=== PATIENT | male | born 1970 | race Caucasian/White ===

== ENCOUNTER 2018-07-09 08:03 | Outpatient (RCR) | payer BC ==
[~2018-07-09 08:03] MED LIST: LACT10SO33 PO; POLY17PO23 PO; SENN1TAB76 PO; [UNRECOGNIZED DRUG - OTHER] PO
== END 2018-07-09 09:29 | disposition home or self-care (01) ==
DX: M54.42 Lumbago with sciatica, left side (principal)

== ENCOUNTER 2020-10-22 17:11 | Emergency (ER) | payer BC ==
[~2020-10-22] VITALS: Ht 175 cm; Wt 95.0 kg
--- NOTE | 2020-10-22 17:56 | ED Cardiac General ---
History of Present Illness General Chief Complaint: Cardiac/General Problems Stated Complaint: HIGH BP 168/90 Source: patient Exam Limitations: no limitations History of Present Illness Date Seen by Provider: Oct 22, 2020 Time Seen by Provider: 17:38 Initial Comments This is a healthy-appearing 50-year-old male presents to the ER with complaints of high blood pressure and left arm numbness, more so in his hand. States he was recently placed on Losartan for his high BP, and noted throughout the day his BP stayed high, with the highest at 168/90. In ED he reports symptoms of numbness is gone. States his elevated BP causes him to be very anxious. He denies fever, vertigo, chills, vision changes, weakness, slurred speech, cough, shortness of breath, chest pain, nausea, vomiting, diarrhea, abdominal pain. Allergies and Home Medications Allergies Coded Allergies: No Known Drug Allergies (Unverified , 04/18/11) Home Medications Lactulose 10 G/15 Ml Btl, 30 ML PO BID, (Reported) Polyethylene Glycol 17 Gm Pack, 17 GM PO DAILY, (Reported) Senna 1 Tab Tablet, 1 TAB PO DAILY PRN, (Reported) USE ONE CAP FULL TO 8OZ. H20 [oxyelite pro i bid] , 1 TAB PO BID, (Reported) Patient Home Medication List Home Medication List Reviewed: Yes Review of Systems Review of Systems Constitutional: no symptoms reported EENTM: No Blurred Vision, No Double Vision; Nose Congestion Respiratory: No Symptoms Reported Cardiovascular: See HPI Gastrointestinal: No Symptoms Reported Genitourinary: No Symptoms Reported Musculoskeletal: no symptoms reported Skin: no symptoms reported Endocrine: No Symptoms Reported Hematologic/Lymphatic: No Symptoms Reported Physical Exam Vital Signs Vital Signs - First Documented 10/22/20 10/22/20 17:15 18:59 Temp 36.1 Pulse 98 Resp 18 B/P (MAP) 154/89 (110) Pulse Ox 99 O2 Delivery Room Air Capillary Refill : Height, Weight, BMI Height: '" Weight: lbs. oz. kg; BMI Method: General Appearance: No Apparent Distress, WD/WN HEENT: PERRL/EOMI, Normal ENT Inspection, Pharynx Normal, Moist Mucous Membranes Neck: Full Range of Motion, Normal Inspection, Non Tender, Supple; No Carotid Bruit Respiratory: Lungs Clear, Normal Breath Sounds, No Accessory Muscle Use Cardiovascular: Regular Rate, Rhythm, No Edema, No Murmur, Normal Peripheral Pulses, Friction Rub Gastrointestinal: Normal Bowel Sounds, Non Tender, Soft Extremity: Normal Capillary Refill, Normal Inspection, No Pedal Edema Neurologic/Psychiatric: Alert, Oriented x3, No Motor/Sensory Deficits, Normal Mood/Affect, coffee shop aide II-XII Norm as Tested Skin: Normal Color, Warm/Dry Progress/Results/Core Measures Results/Orders Lab Results Laboratory Tests Test 10/22/20 17:54 Range/Units White Blood Count 6.1 4.3-11.0 10^3/uL Red Blood Count 5.21 4.30-5.52 10^6/uL Hemoglobin 16.3 13.3-17.7 g/dL Hematocrit 49 40-54 % Mean Corpuscular Volume 94 80-99 fL Mean Corpuscular Hemoglobin 31 25-34 pg Mean Corpuscular Hemoglobin Concent 33 32-36 g/dL Red Cell Distribution Width 14.0 10.0-14.5 % Platelet Count 210 130-400 10^3/uL Mean Platelet Volume 10.8 9.0-12.2 fL Immature Granulocyte % (Auto) 1 % Neutrophils (%) (Auto) 48 42-75 % Lymphocytes (%) (Auto) 37 12-44 % Monocytes (%) (Auto) 10 0-12 % Eosinophils (%) (Auto) 4 0-10 % Basophils (%) (Auto) 0 0-10 % Neutrophils # (Auto) 3.0 1.8-7.8 10^3/uL Lymphocytes # (Auto) 2.2 1.0-4.0 10^3/uL Monocytes # (Auto) 0.6 0.0-1.0 10^3/uL Eosinophils # (Auto) 0.3 0.0-0.3 10^3/uL Basophils # (Auto) 0.0 0.0-0.1 10^3/uL Immature Granulocyte # (Auto) 0.0 0.0-0.1 10^3/uL Prothrombin Time 13.6 12.2-14.7 SEC INR Comment 1.0 0.8-1.4 Activated Partial Thromboplast Time 32 24-35 SEC Sodium Level 137 135-145 MMOL/L Potassium Level 4.0 3.6-5.0 MMOL/L Chloride Level 104 98-107 MMOL/L Carbon Dioxide Level 19 L 21-32 MMOL/L Anion Gap 14 5-14 MMOL/L Blood Urea Nitrogen 21 H 7-18 MG/DL Creatinine 0.91 0.60-1.30 MG/DL Estimat Glomerular Filtration Rate > 60 BUN/Creatinine Ratio 23 Glucose Level 101 70-105 MG/DL Calcium Level 9.1 8.5-10.1 MG/DL Corrected Calcium 9.0 8.5-10.1 MG/DL Magnesium Level 1.9 1.6-2.4 MG/DL Total Bilirubin 0.4 0.1-1.0 MG/DL Aspartate Amino Transf (AST/SGOT) 24 5-34 U/L Alanine Aminotransferase (ALT/SGPT) 34 0-55 U/L Alkaline Phosphatase 56 40-136 U/L Myoglobin 37.6 10.0-92.0 NG/ML Troponin I < 0.028 <0.028 NG/ML Total Protein 7.5 6.4-8.2 GM/DL Albumin 4.1 3.2-4.5 GM/DL My Orders Orders - LIZZY MALHOTRA APRN Troponin I (10/22/20 17:32) Chest 1 View, Ap/Pa Only (10/22/20 17:32) Ekg Tracing (10/22/20 17:32) Ed Iv/Invasive Line Start (10/22/20 17:32) Monitor-Rhythm Ecg Trace Only (10/22/20 17:32) Cbc With Automated Diff (10/22/20 17:32) Magnesium (10/22/20 17:32) Comprehensive Metabolic Panel (10/22/20 17:32) Myoglobin Serum (10/22/20 17:32) Protime With Inr (10/22/20 17:32) Partial Thromboplastin Time (10/22/20 17:32) O2 (10/22/20 17:32) Vital Signs/I&O 10/22/20 10/22/20 17:15 18:59 Temp 36.1 Pulse 98 90 Resp 18 18 B/P (MAP) 154/89 (110) 146/86 Pulse Ox 99 96 O2 Delivery Room Air Progress Progress Note : Progress Note Pt. examined, no distress. Has no chest pain. CC is for high blood pressure. Notes that he does take OTC vitamins such as Prevagen. In ED SBP 150's. Notes that he was very anxious about his BP which could contribute to the numbness in his left hand. However, cardiac workup initiated. He has no focal or gross neurological deficits. Labs and CXR unremarkable. Reviewed findings and discussed stopping Prevagen as this can cause transient elevated BP. Reviewed discharge plan and he is agreeable with plan. Initial ECG Impression Date: Oct 22, 2020 Initial ECG Impression Time: 17:22 Initial ECG Rate: 84 Initial ECG Rhythm: Normal Sinus Initial ECG Impression: Normal Diagnostic Imaging Diagonstic Imaging: Xray Plain Films/CT/US/NM/MRI: chest Comments NAME: VINAYAK ALEMAN [facility] REC#: [id number] PT STATUS: DEP ER : 1970 PHYSICIAN: LIZZY MALHOTRA APRN ADMIT DATE: 10/22/20/ER Signed Date of Exam:10/22/20 CHEST 1 VIEW, AP/PA ONLY Clinical indication: Patient with high blood pressure, left arm numbness and chest pain. Exam: Portable chest x-ray upright view. Comparisons: None. Findings: Lungs/pleura: Lungs are clear. There is no pneumothorax. There is no pleural effusion. Mediastinum: Unremarkable. Pulmonary vasculature: Unremarkable. Heart: Unremarkable. Bones/extrathoracic soft tissue: There are small degenerative spurs involving the thoracic spine. Impression: There is no radiographic evidence of acute cardiopulmonary process. Dictated by: Dictated on workstation # [id number] Dict: 10/22/201808 Trans: 10/22/201950 E [id number] Interpreted by: KANNAN DORADO MD Electronically signed by: KANNAN DORADO MD 10/22/201950 Reviewed: Reviewed by Me Departure Impression Primary Impression: Hypertension Disposition: 01 HOME, SELF-CARE Condition: Improved Departure-Patient Inst. Referrals: NO,LOCAL PHYSICIAN (PCP/Family) Primary Care Physician Patient Instructions: High Blood Pressure in Adults Add. Discharge Instructions: Plan: 1. Follow up with Dr. Gutierrez within a couple weeks. 2. Take your blood pressure medication as prescribed. 3. Check your blood pressure every morning and record value. Make sure you are sitting, without your legs crossed and have given yourself time to relax. 4. Wait until afternoon to recheck blood pressure. Take your measurements with you to Dr. Wells office. 5. If you are concerned about the accuracy of your machine you can take it to the doctors office to have checked. 6. Reduce the amount of salt you eat. 7. Return to ER if you have any new or concerning symptoms. All discharge instructions reviewed with patient and/or family. Voiced understanding. Copy Copies To 1: AYLIN GUTIERREZ STORMY D APRN Oct 22, 2020 17:56
[2020-10-22 18:01] LABS: BASOPHILS % (AUTO) 0 % (0-10); EOSINOPHILS # (AUTO) 0.3 10^3/uL (0.0-0.3); EOSINOPHILS % (AUTO) 4 % (0-10); HEMATOCRIT 49 % (40-54); HEMOGLOBIN 16.3 g/dL (13.3-17.7); LYMPHOCYTES # (AUTO) 2.2 10^3/uL (1.0-4.0); LYMPHOCYTES % (AUTO) 37 % (12-44); MEAN CORPUSCULAR HEMOGLOBIN 31 pg (25-34); MEAN CORPUSCULAR HGB CONC 33 g/dL (32-36); MEAN CORPUSCULAR VOLUME 94 fL (80-99); MEAN PLATELET VOLUME 10.8 fL (9.0-12.2); MONOCYTES # (AUTO) 0.6 10^3/uL (0.0-1.0); MONOCYTES % (AUTO) 10 % (0-12); NEUTROPHILS % (AUTO) 48 % (42-75); PLATELET COUNT 210 10^3/uL (130-400); WHITE BLOOD COUNT 6.1 10^3/uL (4.3-11.0)
[2020-10-22 18:14] LABS: ALBUMIN 4.1 GM/DL (3.2-4.5); CHLORIDE 104 MMOL/L (98-107); PROTHROMBIN TIME PATIENT 13.6 SEC (12.2-14.7); SODIUM 137 MMOL/L (135-145)
[2020-10-22 18:15] LABS: CALCIUM 9.1 MG/DL (8.5-10.1)
[2020-10-22 18:16] LABS: GLUCOSE 101 MG/DL (70-105); TOTAL PROTEIN 7.5 GM/DL (6.4-8.2)
--- NOTE | 2020-10-22 18:16 | Diagnostic Imaging Report ---
Clinical indication: Patient with high blood pressure, left arm numbness and chest pain. Exam: Portable chest x-ray upright view. Comparisons: None. Findings: Lungs/pleura: Lungs are clear. There is no pneumothorax. There is no pleural effusion. Mediastinum: Unremarkable. Pulmonary vasculature: Unremarkable. Heart: Unremarkable. Bones/extrathoracic soft tissue: There are small degenerative spurs involving the thoracic spine. Impression: There is no radiographic evidence of acute cardiopulmonary process. Dictated by: Dictated on workstation # [id number]
[2020-10-22 18:17] LABS: CARBON DIOXIDE 19 MMOL/L (21-32)
[2020-10-22 18:18] LABS: BILIRUBIN,TOTAL 0.4 MG/DL (0.1-1.0)
[2020-10-22 18:20] LABS: ALKALINE PHOSPHATASE 56 U/L (40-136); CREATININE SERUM 0.91 MG/DL (0.60-1.30); GFR ESTIMATED > 60
[2020-10-22 18:21] LABS: BUN/CREATININE RATIO 23
[2020-10-22 18:23] LABS: ALANINE AMINOTRANSFERASE 34 U/L (0-55); MAGNESIUM 1.9 MG/DL (1.6-2.4)
[2020-10-22 18:59] VITALS: BP 146/86
== END 2020-10-22 18:59 | disposition home or self-care (01) ==
LOC: EDUNIT# 17:11 → ER 17:13
DX: I10 Essential (primary) hypertension (principal); F41.9 Anxiety disorder, unspecified
CPT/HCPCS: 36415; 71045; 80053; 83735; 83874; 84484; 85025; 85610; 85730; 93005; 93041